=== PATIENT | female | born 1990 | race Caucasian/White ===

== ENCOUNTER → 2023-06-05 14:47 | Outpatient (BNVA) | payer MEDICAID, SELFPAY | PROVIDERS: Visit Provider Internal Medicine | DX: E07.9 Disorder of thyroid, unspecified (principal) | CPT/HCPCS: 36415; 83516; 84439; 84443; 86376; 86800 ==

== ENCOUNTER 2023-09-07 09:52 | Outpatient (CLI) | payer BC, SELFPAY | END 2023-09-07 09:53 | disposition home or self-care (01) | LOC: LAB 09:53 | PROVIDERS: PCP Family Medicine; Visit Provider Internal Medicine | DX: E07.9 Disorder of thyroid, unspecified (principal); E03.9 Hypothyroidism, unspecified | CPT/HCPCS: 36415; 84439; 84443 ==

== ENCOUNTER 2023-11-09 12:59 | Outpatient (CLI) | payer BC, SELFPAY ==
[2023-11-09 13:44] LABS: Free T4 Free Thyroxine 1.22 ng/dL (0.82-1.77); Thyroid Stimulating Hormone 2.09 uIU/mL (0.27-4.20)
== END 2023-11-09 13:00 | disposition home or self-care (01) ==
LOC: LAB 13:00
PROVIDERS: PCP Family Medicine; Visit Provider Internal Medicine
DX: E07.9 Disorder of thyroid, unspecified (principal); E03.9 Hypothyroidism, unspecified
CPT/HCPCS: 36415; 84439; 84443

== ENCOUNTER → 2024-03-28 11:58 | Outpatient (BNVA) | payer BC, SELFPAY | PROVIDERS: PCP Family Medicine; Visit Provider Internal Medicine | DX: E03.9 Hypothyroidism, unspecified (principal) | CPT/HCPCS: 36415; 84439; 84443 ==

== ENCOUNTER → 2024-09-25 09:34 | Outpatient (BNVA) | payer SELFPAY | PROVIDERS: PCP Family Medicine; Referring Provider Family Medicine; Visit Provider Internal Medicine | DX: E07.9 Disorder of thyroid, unspecified (principal); E03.9 Hypothyroidism, unspecified | CPT/HCPCS: 36415; 84439; 84443 ==